=== PATIENT | male | born 1990 | race Caucasian/White ===

== ENCOUNTER 2018-02-20 16:56 | Emergency (ER) | payer OTHER ==
[~2018-02-20] VITALS: Ht 167.6 cm; Wt 68.2 kg
[2018-02-20 17:01] VITALS: BP 122/79
[2018-02-20] MEDS ORDERED: NAPROSYN500 MG PO (17:21)
[2018-02-20] MEDS ORDERED: ERYTHROMYCIN E3.5 G3 OPHTHALMIC (17:21)
== END 2018-02-20 17:28 | disposition home or self-care (01) ==
LOC: M.ERS 16:56
DX: S05.02XA Injury of conjunctiva and corneal abrasion without foreign body, left eye, initial encounter (principal); X58.XXXA Exposure to other specified factors, initial encounter; Y93.89 Activity, other specified; Y92.89 Other specified places as the place of occurrence of the external cause; Y99.8 Other external cause status